=== PATIENT | male | born 1965 | race Two or more races ===

== ENCOUNTER 2017-02-12 20:48 | Emergency (ER) | payer SELFPAY ==
[~2017-02-12] VITALS: Ht 175.3 cm; Wt 74.8 kg
[2017-02-12] MEDS ORDERED: NKM (20:56)
[2017-02-12 21:00] VITALS: BP 117/83
--- NOTE | 2017-02-12 21:16 | Emergency Room Report ---
History of Present Illness General Chief Complaint: Head Injury Source: Patient Present Illness HPI Is a 51-year-old male presents with chief complaint of head injury. Onset was 4 days ago. He was on an airplane got up quickly and turn his head and had a syncopal episode. He said he hit his head on the armrest. No other complaint. Still feeling a little lightheaded so he came in for evaluation. Able to drive here without a problem. Denies any nausea vomiting denies any fever or chills. Has not seen a doctor for this. Allergies: Coded Allergies: No Known Allergies (Unverified , 02/12/17) Patient History Past Medical History: see triage record, old chart reviewed Past Surgical History: none Pertinent Family History: none Social History: Denies: smoking Immunizations: other Reviewed Nursing Documentation: PMH: Agreed, PSxH: Agreed Nursing Documentation-PMH Past Medical History: No Stated History Review of Systems Eye: Denies: eye pain, blurred vision ENT: Denies: ear pain, nose congestion, throat swelling Respiratory: Denies: cough, shortness of breath Cardiovascular: Denies: chest pain, palpitations Gastrointestinal: Denies: abdominal pain, diarrhea, nausea, vomiting Musculoskeletal: Denies: back pain, joint pain Skin: Denies: rash Neurological: Denies: headache, numbness Endocrine: Denies: increased thirst, increased urine Hematologic/Lymphatic: Denies: easy bruising All Other Systems: negative except mentioned in HPI Physical Exam Vital Signs Date Time Temp Pulse Resp B/P (MAP) Pulse Ox O2 Delivery O2 Flow Rate FiO2 02/12/17 20:53 98.2 90 14 117/83 95 Room Air vitals normal Sp02 EP Interpretation: reviewed, normal General Appearance: well appearing, no apparent distress, alert Head: normocephalic, atraumatic Eyes: bilateral eye PERRL, bilateral eye EOMI ENT: hearing grossly normal, normal pharynx Neck: full range of motion, supple, no meningismus Respiratory: chest non-tender, lungs clear, normal breath sounds Cardiovascular #1: regular rate, rhythm, no murmur Gastrointestinal: normal bowel sounds, non tender, no mass, no organomegaly, no bruit, non-distended Musculoskeletal: back normal, gait/station normal, normal range of motion Psychiatric: mood/affect normal Skin: warm/dry Medical Decision Making Diagnostic Impression: Primary Impression: Acute head injury Qualified Codes: S09.90XA - Unspecified injury of head, initial encounter Additional Impression: Post concussive syndrome ER Course Patient with minor head injury. Notice any fracture or bleed. We'll discharge home with reassurance. CT/MRI/US Diagnostic Results CT/MRI/US Diagnostic Results : Imaging Test Ordered: CT head Impression negative per radiologist Last Vital Signs Date Time Temp Pulse Resp B/P (MAP) Pulse Ox O2 Delivery O2 Flow Rate FiO2 02/12/17 21:00 98.2 14 117/83 95 Room Air 02/12/17 20:53 90 Status: unchanged Disposition: HOME, SELF-CARE Condition: Stable Patient Instructions: HEAD INJURY, No Wake-Up (Adult) Additional Instructions: Followup your doctor as needed in 7 days. May take Tylenol Motrin for headache. Return if symptom worsen. ANNAMARIE MEYERS M.D. Feb 12, 2017 21:16
[2017-02-12 21:50] VITALS: BP 117/83
--- NOTE | 2017-02-13 09:03 | Diagnostic Imaging Report ---
Indications: Pain, injury, status post fall Technique: Spiral acquisitions obtained through the brain. Angled axial and coronal 5 x 5 mm slices were reconstructed. Total dose length product 1400 mGycm. CTDI vol(s) 70 mGy. Dose reduction achieved using automated exposure control Comparison: None Findings: No acute hemorrhage or edema. No mass effect or midline shift. Normal garrido-white differentiation. Normal size ventricles and extra-axial CSF spaces. Intact calvarium. There is right-sided ethmoid and frontal sinus disease. The included orbits are unremarkable. Impression: Essentially unremarkable exam. Negative for acute intracranial bleed or mass effect Sinus disease This agrees with the preliminary interpretation provided overnight by [facility]. The CT scanner at [facility] is accredited by the [employer] and the scans are performed using protocols designed to limit radiation exposure to as low as reasonably achievable to attain images of sufficient resolution adequate for diagnostic evaluation.
== END 2017-02-12 21:50 | disposition home or self-care (01) ==
LOC: EMR 21:30
DX: S09.8XXA Other specified injuries of head, initial encounter (principal); W22.8XXA Striking against or struck by other objects, initial encounter; Y92.89 Other specified places as the place of occurrence of the external cause; F07.81 Postconcussional syndrome; L98.8 Other specified disorders of the skin and subcutaneous tissue
CPT/HCPCS: 70450; 99284